=== PATIENT | male | born 1955 | race Caucasian/White ===

== ENCOUNTER → 2023-07-17 | Outpatient (CLI) | payer MEDICARE ==
[~2023-07-17] MED LIST: ATOR10 PO; Actos30 MG PO; Benicar40 MG PO; Humalog100 UNIT/1 SC; Lipitor20 MG PO; METF500 PO; OLMESARTAN MEDO20 MG PO; PIOG30 PO; TOUJEO MAX300 UNIT/1 SC; VALS80 PO
== END | disposition home or self-care (01) ==
LOC: LAB 10:45 → LAB SHORT 10:45
DX: L57.0 Actinic keratosis (principal)
CPT/HCPCS: 88305